=== PATIENT | female | born 1965 | race African-American/Black ===

== ENCOUNTER 2016-12-01 10:03 | Emergency (ER) | payer OTHER ==
[~2016-12-01] VITALS: Ht 167.6 cm; Wt 138.3 kg
[~2016-12-01 10:03] MED LIST: ACETAMINOPHEN/O1 TA2 PO; AVELOX400 MG PO; BENTYL20 M1 PO; BENTYL20 MG PO; ENDOCET 10-3251 EACH PO; ENDOCET 325 MG-1 TA1 PO; GLUCOPHAGE1000 M1 PO; IMODIUM 2 MG. CA2 MG PO; KEFLEX500 MG PO; LEVAQUIN500 MG PO; LIDODERM1 EACH TOP; LISINOPRIL20 M1 PO; LYRICA75 MG PO; MAALOX PO; MONTELUKAST SOD10 M1 PO; NOVOLOG MI100 UNIT/2 SC; NYSTATIN100000 U/2 TOP; ONDANSETRON HYDR4 MG PO; OXYCODONE5 M1 PO; PERCOCET 325 MG1 TA2 PO; PERCOCET 325 MG1 TAB PO; PERCOCET 5-3251 EACH PO; PROAIR HFA8.5 GM INH; PROTONIX40 M3 PO; SYMBICORT 16010.2 GM INH; TRAMADOL50 MG PO; VOLTAREN GEL1% TOP; VOLTAREN50 MG TOP; ZOFRAN ODT4 MG PO
--- NOTE | 2016-12-01 11:16 | ED GENERAL ADULT ---
History of Present Illness General Chief Complaint: Upper Respiratory Sx/Fever Stated Complaint: RIGHT EAR PAIN, NASAL CONGESTION,COUGH Source: patient Exam Limitations: no limitations Vital Signs & Intake/Output Vital Signs & Intake/Output Vital Signs Date Time Temp Pulse Resp B/P Pulse O2 O2 Flow FiO2 Ox Delivery Rate 12/01 1221 97.6 72 22 122/87 99 Nasal 2.0L Cannula 12/01 1147 Nasal 2.0L Cannula 12/01 1124 98 Nasal 2.0L Cannula 12/01 1008 98.4 73 20 141/78 99 Nasal 2.0L Cannula Allergies Coded Allergies: Penicillins (HIVES 11/06/15) ibuprofen (Intermediate, UPSET STOMACH 11/06/15) Uncoded Allergies: SEASONING SALT (Intermediate, HIVES 07/31/14) Reconcile Medications Albuterol Sulfate (Proair Hfa) 90 MCG HFA.AER.AD 2 PUF INH Q4-6 PRN PRN COPD (Reported) Budesonide/Formoterol Fumarate (Symbicort 160-4.5 Mcg Inhaler) 160 MCG-4.5 MCG/ ACTUATION HFA.AER.AD 2 PUF INH BID BREATHING PROBLEMS (Reported) Codeine Phosphate/Guaifenesi (Cheratussin AC Syrup) 10 MG-100 MG/5 ML LIQUID 5 ML PO Q8HR PRN COUGH Dicyclomine HCl 20 MG TABLET 1 TAB PO TID GI (Reported) Doxycycline Hyclate 100 MG CAPSULE 1 CAP PO BID SINUSITIS Insulin Aspart Protam & Aspart (Novolog Mix 70-30 Flexpen Syrn) 100 UNIT/ML (70- 30) INSULN.PEN 14 U SC BID DIABETES (Reported) Lidocaine (Lidoderm) 5 % ADH..PATCH 1 PAT TOP DAILY KNEE,SHOULDER (Reported) may wear up to 12 hours Lisinopril 20 MG TABLET 1 TAB PO DAILY HTN (Reported) Metformin HCl (Glucophage) 1,000 MG TABLET 1 TAB PO BID DIABETES (Reported) Montelukast Sodium 10 MG TABLET 1 TAB PO QPM COPD (Reported) Oxycodone HCl/Acetaminophen (Endocet 10-325 MG Tablet) 1 EACH TABLET 1 TAB PO TID PAIN (Reported) Pantoprazole Sodium (Protonix) 40 MG TABLET.DR 1 TAB PO DAILY GI (Reported) Pregabalin (Lyrica) 75 MG CAPSULE 1 CAP PO DAILY NEUROPATHY (Reported) Triage Note: PT TO ED C/O RIGHT EAR PAIN X 2 DAYS. ALSO C/O URI S/S. DENIES FEVERS AT HOME. AFEBRILE NOW. C/O PRODUCTIVE COUGH WITH GREEN SPUTUM. Triage Nurses Notes Reviewed? yes Onset: Gradual Duration: day(s): (2) Timing: remote history Injury Environment: home Severity: moderate Severity Numbers: 8 No Modifying Factors: none Associated Symptoms: cough HPI: Patient is a 50-year-old female with history of COPD on 2 L nasal cannula all the time presenting to the emergency department chief complaining of upper respiratory congestion, right ear pain, productive cough of green sputum nothing going on for the past 2 days. Positive malaise. Denies fevers or chills. No recent travel or sick contacts. She's been taking an old prescription cough medication that has not been working. Denies any chest pain palpitations. She reports shortness of breath only with coughing. Has not had to increase her oxygen is. Denies abdominal pain. No nausea or vomiting. She also reports a scratchy throat and body aches. (MERRICK GLEASON) Past History Travel History Traveled to [place] past 21 day No Medical History Any Pertinent Medical History? see below for history Neurological: NONE EENT: NONE Cardiovascular: hypertension Respiratory: asthma, bronchitis, COPD, obstructive sleep apnea, O2 DEP @ 2L USES CPAP Gastrointestinal: NONE Hepatic: NONE Renal: NONE Musculoskeletal: NONE Psychiatric: NONE Endocrine: diabetes Blood Disorders: anemia Cancer(s): NONE FELT HANGER/Reproductive: NONE History of MRSA: No History of VRE: No History of CDIFF: No Tetanus Vaccine: 05/08/13 Surgical History Surgical History: N Psychosocial History Who do you live with Significant Other Services at Home None What is your primary language Kyrgyz Tobacco Use: Quit >30 days ago ETOH Use: denies use Illicit Drug Use: denies illicit drug use Family History Hx Contributory? No (MERRICK GLEASON) Review of Systems Review of Systems Constitutional: Reports: malaise. Comments Review of systems: See HPI, All other systems negative. Constitutional, no chills fever or weight loss HEENT: No visual changes Cardiovascular: No chest pain ,palpitation , orthopnea or ankle swelling Skin, no jaundice no rashes Respiratory: No hemoptysis GI: No nausea no vomiting : No dysuria No hematuria Muscle skeletal: no back pain, no neck pain, Neurologic: No numbness no confusion, no headache Psych: No stress anxiety or depression,. Heme/endocrine: No bruising no bleeding no polyuria or polydipsia Immunology: No splenectomy or history of AIDS (CHESTER LINDA,MERRICK) Physical Exam Physical Exam General Appearance: well developed/nourished, no apparent distress, alert, awake , comfortable Comments: Well-developed well-nourished person in no acute distress HEENT: Normal EENT exam, extraocular motion intact, no nystagmus. Pupils equally round and reactive to light and accommodation. Nose is atraumatic. External auditory canal and Tympanic membranes clear. Pharynx normal is mildly erythematous, no exudate, clearing secretions without difficulty. No swelling or edema. Mild tenderness to palpation over the maxillary sinuses bilaterally. Nasal cannula in place. Clear rhinorrhea appreciated bilaterally. Neck: Supple, mild anterior cervical lymphadenopathy appreciated that is nontender, mobile, normal range of motion without pain or tenderness Back: Nontender, Cardiovascular: Regular rate and rhythms no murmurs rubs or gallops, normal JVP Respiratory: Chest nontender. No respiratory distress.diffuse expiratory wheezing to auscultation bilaterally Extremity: No edema, no calf tenderness to palpation, normal and equal pulses. Neuro: Alert oriented x3 Skin: No appreciable rash on exposed skin, skin is warm and dry. Psych: Mood and affect is normal, memory and judgment is normal. Core Measures ACS in differential dx? No CVA/TIA Diagnosis: No Severe Sepsis Present: No Septic Shock Present: No (CHESTER LINDA,MERRICK) Progress Differential Diagnoses I considered the following diagnoses in my evaluation of the patient: Influenza , upper respiratory infection, asthma exacerbation, COPD exacerbation, pneumonia , bronchitis, sinusitis, syndrome Plan of Care: Orders Procedure Date/time Status RAPID VIRAL INFLUENZA A 12/01 110 Complete Microbiology 12/01 1140 NASOPHARYN: Influenza Virus A & B Rapid Smear - COMP Diagnostic Imaging: Viewed by Me: Radiology Read. Discussed w/RAD: Radiology Read. Radiology Impression: PATIENT: YA ANGEL PRESENT AGE: 50 PATIENT ACCOUNT NO: [id number] : 67 LOCATION: [facility] ORDERING PHYSICIAN: MERRICK LINDA SERVICE DATE: 12/01/16-1106 EXAM TYPE: RAD - XRY-PORTABLE CHEST XRAY EXAMINATION: XR PORTABLE CHEST CLINICAL INFORMATION: Cough COMPARISON: 06/10/2016 TECHNIQUE: Portable AP view of the chest was obtained. FINDINGS: The lungs are well expanded. Overall evaluation is somewhat limited due to body habitus and overlying soft tissue prominence. No dense consolidation, edema, or effusion. No pneumothorax. The cardiomediastinal silhouette is unchanged. No acute osseous abnormality. IMPRESSION: Somewhat limited examination with no focal abnormality identified. Initial ED EKG: none Comments: 12/01/2016 11:35:38 AM patient medicated with DuoNeb treatment for wheezing. She 'll go fracture to rule out pneumonia although unlikely. Patient is afebrile no acute distress. Vitals are stable. We will also assess for influenza. Patient requesting pain medication at this time. She also reports that she would like a refill on her HYCODON cough medication prescription. 12/01/2016 12:13:18 PM and reevaluation patient feeling improved after breathing treatment pain medication. She'll be sent home with cough medication and antibiotics. Chose doxycycline secondary to interactions with other meds. This will treat sinusitis in bronchitis. She'll follow-up with her PCP. (MERRICK GLEASON) Departure Departure Disposition: HOME OR SELF CARE Condition: Stable Clinical Impression Primary Impression: Bronchitis Secondary Impressions: Sinusitis Qualifiers: Sinusitis location: maxillary Chronicity: acute Recurrence: not specified as recurrent Qualified Code: J01.00 - Acute maxillary sinusitis, unspecified Referrals: KADEN KHAN,RHONDA Crystal (PCP/Family) Additional Instructions: Follow-up with your primary care physician call to make an appointment.. Increase fluids. Take antibiotics and cough medication as prescribed. Use at- home inhalers as directed. Return for worsening symptoms or concerns. Departure Forms: Customer Survey General Discharge Information Prescriptions: Current Visit Scripts Codeine Phosphate/Guaifenesi (Cheratussin AC Syrup) 5 ML PO Q8HR PRN COUGH #125 ML Doxycycline Hyclate 1 CAP PO BID #20 CAP (MERRICK GLEASON) PA/EMAIL PRODUCTION CONSULTANT Co-Sign Statement Statement: ED Attending supervision documentation- [] I saw and evaluated the patient. I have also reviewed all the pertinent lab results and diagnostic results. I agree with the findings and the plan of care as documented in the PA's/EMAIL PRODUCTION CONSULTANT's documentation. [x] I have reviewed the ED Record and agree with the PA's/EMAIL PRODUCTION CONSULTANT's documentation. [] Additions or exceptions (if any) to the PAs/EMAIL PRODUCTION CONSULTANT's note and plan are summarized below: [] (STEPHANIE LYNN,ELLA Chen) Critical Care Note Critical Care Note Critical Care Time: non-applicable (CHESTER LINDA,MERRICK)
--- NOTE | 2016-12-01 11:35 | RADIOLOGY REPORT ---
EXAMINATION: XR PORTABLE CHEST CLINICAL INFORMATION: Cough COMPARISON: 06/10/2016 TECHNIQUE: Portable AP view of the chest was obtained. FINDINGS: The lungs are well expanded. Overall evaluation is somewhat limited due to body habitus and overlying soft tissue prominence. No dense consolidation, edema, or effusion. No pneumothorax. The cardiomediastinal silhouette is unchanged. No acute osseous abnormality. IMPRESSION: Somewhat limited examination with no focal abnormality identified.
[2016-12-01] MEDS ORDERED: DOXYCYCLINE HY100 M2 PO (11:40)
[2016-12-01] MEDS ORDERED: CHERATUSSIN AC118 M1 PO (11:40)
[2016-12-01] MEDS ORDERED: DICYCLOMINE HCL20 M1 PO (11:44)
[2016-12-01] MEDS ORDERED: LYRICA75 M1 PO (11:46)
[2016-12-01 12:21] VITALS: BP 122/87
== END 2016-12-01 12:21 ==
LOC: ERH 10:03
DX: J40 Bronchitis, not specified as acute or chronic (principal); J32.9 Chronic sinusitis, unspecified; Z87.891 Personal history of nicotine dependence
CPT/HCPCS: 1263; 87804; 87804-59

== ENCOUNTER 2017-01-15 13:06 | Emergency (ER) | payer OTHER ==
[~2017-01-15] VITALS: Ht 157.5 cm; Wt 139.3 kg
[~2017-01-15 13:06] MED LIST changes: +CHERATUSSIN AC118 M1 PO; +DICYCLOMINE HCL20 M1 PO; +DOXYCYCLINE HY100 M2 PO; +LYRICA75 M1 PO
--- NOTE | 2017-01-15 14:13 | ED NECK/BACK PAIN COMPLAINT ---
History of Present Illness General Chief Complaint: Low Back Pain/Injury Stated Complaint: INJURY TO BACK AND NECK YESTERDAY Source: patient, family Exam Limitations: no limitations Vital Signs & Intake/Output Vital Signs & Intake/Output Vital Signs Date Time Temp Pulse Resp B/P B/P Pulse O2 O2 Flow FiO2 Mean Ox Delivery Rate 01/15 1512 97.3 73 18 138/65 100 Room Air 01/15 1311 98.9 85 20 145/83 96 Room Air ED Intake and Output 01/16 0000 01/15 1200 Intake Total 120 Output Total Balance 120 Intake, Oral 120 Patient 307 lb Weight Weight Reported by Patient Measurement Method Allergies Coded Allergies: Penicillins (HIVES 11/06/15) ibuprofen (Intermediate, UPSET STOMACH 11/06/15) Uncoded Allergies: SEASONING SALT (Intermediate, HIVES 07/31/14) Reconcile Medications Albuterol Sulfate (Proair Hfa) 90 MCG HFA.AER.AD 2 PUF INH Q4-6 PRN PRN COPD (Reported) Budesonide/Formoterol Fumarate (Symbicort 160-4.5 Mcg Inhaler) 160 MCG-4.5 MCG/ ACTUATION HFA.AER.AD 2 PUF INH BID BREATHING PROBLEMS (Reported) Codeine Phosphate/Guaifenesi (Cheratussin AC Syrup) 10 MG-100 MG/5 ML LIQUID 5 ML PO Q8HR PRN COUGH Dicyclomine HCl 20 MG TABLET 1 TAB PO TID GI (Reported) Doxycycline Hyclate 100 MG CAPSULE 1 CAP PO BID SINUSITIS Insulin Aspart Protam & Aspart (Novolog Mix 70-30 Flexpen Syrn) 100 UNIT/ML (70- 30) INSULN.PEN 14 U SC BID DIABETES (Reported) Lidocaine (Lidoderm) 5 % ADH..PATCH 1 PAT TOP DAILY KNEE,SHOULDER (Reported) may wear up to 12 hours Lisinopril 20 MG TABLET 1 TAB PO DAILY HTN (Reported) Metformin HCl (Glucophage) 1,000 MG TABLET 1 TAB PO BID DIABETES (Reported) Montelukast Sodium 10 MG TABLET 1 TAB PO QPM COPD (Reported) Oxycodone HCl/Acetaminophen (Endocet 10-325 MG Tablet) 1 EACH TABLET 1 TAB PO TID PAIN (Reported) Oxycodone HCl/Acetaminophen (Percocet 5-325 MG Tablet) 5 MG-325 MG TABLET 1 TAB PO BID Back pain Pantoprazole Sodium (Protonix) 40 MG TABLET. 1 TAB PO DAILY GI (Reported) Pregabalin (Lyrica) 75 MG CAPSULE 1 CAP PO DAILY NEUROPATHY (Reported) Triage Note: PT TO ED C/O NECK AND BACK PAIN. STATES ON THE [employer] YESTERDAY THE WHEELCHAIR RAMP BROKE CAUSING PT TO FALL. Triage Nurses Notes Reviewed? yes HPI: 51 yo F PMH HTN, Astma, Chronic Knee pain presenting with back pain status post injury. Patient was exiting [place] yesterday, had wheeled her wheelchair onto motorized ramp, catching system nonmotorized ramp malfunctioned and ramp fell from elevated rapidly down onto pavement of street. Patient states that she had significant compressive force her buttocks and upper back with impact on the pavement, but did not fall out of her wheelchair, denies head/neck trauma, LOC, focal neurologic symptoms. Some back pain yesterday, worse today prompting presentation to the emergency department (LISSET BURNETT MD) Past History Travel History Traveled [facility] past 21 day No Medical History Any Pertinent Medical History? none Neurological: NONE EENT: NONE Cardiovascular: hypertension Respiratory: asthma, bronchitis, COPD, obstructive sleep apnea, O2 DEP @ 2L USES CPAP Gastrointestinal: NONE Hepatic: NONE Renal: NONE Musculoskeletal: NONE Psychiatric: NONE Endocrine: diabetes Blood Disorders: anemia Cancer(s): NONE MANAGER DISH/Reproductive: NONE History of MRSA: No History of VRE: No History of CDIFF: No Tetanus Vaccine: 05/08/13 Surgical History Surgical History: N Psychosocial History Who do you live with Significant Other Services at Home None What is your primary language Surinamese Tobacco Use: Quit >30 days ago ETOH Use: denies use Illicit Drug Use: denies illicit drug use Family History Hx Contributory? No (LISSET BURNETT MD) Review of Systems Review of Systems Constitutional: Reports: no symptoms. Eyes: Reports: no symptoms. Ears, Nose, Throat, Mouth: Reports: no symptoms. Respiratory: Reports: no symptoms. Cardiovascular: Reports: no symptoms. Gastrointestinal/Abdominal: Reports: no symptoms. Musculoskeletal: Reports: no symptoms. Skin: Reports: no symptoms. Neurological/Psychological: Reports: no symptoms. (LISSET BURNETT MD) Physical Exam Physical Exam General Appearance: well developed/nourished, no apparent distress, alert, awake Head: atraumatic Eyes: Bilateral: normal appearance. Neck: normal inspection, no midline tenderness Respiratory: normal breath sounds, no respiratory distress Cardiovascular: regular rate/rhythm, normal peripheral pulses, bradycardia Gastrointestinal: normal bowel sounds, soft, non-tender Comments: HEENT: Atraumatic Cervical spine: Moderate tenderness to palpation of bilateral lateral paracervical muscles without bony midline tenderness palpation, step-offs, deformities Thoracic and lumbar spine: Moderate tenderness palpation over entirety of midline thoracic and lumbar spine without step-offs or deformities, no crepitus, no instability, no point tenderness to palpation Neuro: Strength and sensation intact in bilateral upper and lower extremities (LISSET BURNETT MD) Progress Differential Diagnosis: thoracic outlet syn, T/L spine injury Plan of Care: Current Medications Sig/Clotilde Start time Last Medication Dose Stop Time Status Admin Oxycodone HCl 0 .STK-MED ONE 01/15 1441 CAN (Roxicodone) Oxycodone HCl 5 MG ONCE ONE 01/15 1415 CAN (Roxicodone) 01/15 1416 Physician MDM: 51 yo F M presenting with back pain s/p fall on ramp in wheelchair. VSS, trauma exam as above. DDx: Muscle strain, low concern for C- spine, T-spine, or L-spine fracture. Patient medicated with Percocet with marked improvement in pain. X-ray of thoracic and lumbar spine without evidence of compression fractures, patient reassured by imaging. Patient notes that she has run out of her Percocet, has pain contract, we'll provide with prescription for 4 Percocet given acute injury, instructed to follow up with pain management for further evaluation and narcotic Rx. Discharged with return to care precautions. (LISSET BURNETT MD) Departure Departure Disposition: HOME OR SELF CARE Condition: Stable Clinical Impression Primary Impression: Back pain Referrals: KADEN KHAN,RHONDA Crystal (PCP/Family) Additional Instructions: Take Tylenol or ibuprofen as needed for back pain. Follow-up with her automotive paint technician in the next 2-3 days Return to the Emergency department for any new, worsening, or concerning symptoms. Departure Forms: Customer Survey General Discharge Information Prescriptions: Current Visit Scripts Oxycodone HCl/Acetaminophen (Percocet 5-325 MG Tablet) 1 TAB PO BID #3 TAB (LISSET BURNETT MD) Resident Co-Sign Statement Statement: ED Attending supervision documentation- [X] I saw and evaluated the patient. I have also reviewed all the pertinent lab results and diagnostic results. I agree with the findings and the plan of care as documented in the Resident's documentation. [X] I have reviewed the ED Record and agree with the Resident's documentation. [] Additions or exceptions (if any) to the Resident's note and plan are summarized below: [] (EDIL KHAN,LOI Crystal)
--- NOTE | 2017-01-15 14:55 | RADIOLOGY REPORT ---
EXAMINATION: XR THORACOLUMBAR SPINE CLINICAL INFORMATION: Back pain. Fall. COMPARISON: Chest x-ray 06/10/2016. CT abdomen pelvis 12/16/2015. CTA of chest 09/08/2015 TECHNIQUE: 2 views of the thoracolumbar spine were obtained. FINDINGS: Vertebrae have normal height and alignment. No fracture. No subluxation. Mild degenerative lipping of the endplates of the mid thoracic vertebrae with mild disc height narrowing, degenerative disc disease. There is also mild degenerative lipping at the anterior endplates of the lower lumbar vertebrae. There is mild degenerative facet joint arthrosis at the lower lumbar spine. No spondylolysis or spondylolisthesis IMPRESSION: No acute abnormality of the thoracic or lumbar spine. Mild multilevel degenerative spondylosis of the spine.
[2017-01-15 15:12] VITALS: BP 138/65
[2017-01-15] MEDS ORDERED: PERCOCET 5-3251 EACH PO (15:54)
== END 2017-01-15 16:04 ==
LOC: ERH 13:06
DX: M54.9 Dorsalgia, unspecified (principal)
CPT/HCPCS: 72080

== ENCOUNTER 2018-04-28 10:22 | Emergency (ER) | payer OTHER ==
[~2018-04-28] VITALS: Ht 167.6 cm; Wt 131.1 kg
--- NOTE | 2018-04-28 11:25 | ED HAND/WRIST INJURY COMPLAINT ---
History of Present Illness General Chief Complaint: General Adult Stated Complaint: ?INFECTED HAND Source: patient Exam Limitations: no limitations Vital Signs & Intake/Output Vital Signs & Intake/Output Vital Signs Date Time Temp Pulse Resp B/P B/P Pulse O2 O2 Flow FiO2 Mean Ox Delivery Rate 04/28 1125 Room Air 04/28 1026 96.8 74 18 98 Room Air Room Air Allergies Coded Allergies: Penicillins (HIVES 11/06/15) ibuprofen (Intermediate, UPSET STOMACH 11/06/15) Uncoded Allergies: SEASONING SALT (Intermediate, HIVES 07/31/14) Reconcile Medications Albuterol Sulfate (Proair Hfa) 90 MCG HFA.AER.AD 2 PUF INH Q4-6 PRN PRN COPD (Reported) Budesonide/Formoterol Fumarate (Symbicort 160-4.5 Mcg Inhaler) 160 MCG-4.5 MCG/ ACTUATION HFA.AER.AD 2 PUF INH BID BREATHING PROBLEMS (Reported) Cephalexin (Keflex) 500 MG CAPSULE 1 CAP PO TID CELLULITIS Codeine Phosphate/Guaifenesi (Cheratussin AC Syrup) 10 MG-100 MG/5 ML LIQUID 5 ML PO Q8HR PRN COUGH Dicyclomine HCl 20 MG TABLET 1 TAB PO TID GI (Reported) Doxycycline Hyclate 100 MG CAPSULE 1 CAP PO BID SINUSITIS Insulin Aspart Protam & Aspart (Novolog Mix 70-30 Flexpen Syrn) 100 UNIT/ML (70- 30) INSULN.PEN 14 U SC BID DIABETES (Reported) Lidocaine (Lidoderm) 5 % ADH..PATCH 1 PAT TOP DAILY KNEE,SHOULDER (Reported) may wear up to 12 hours Lisinopril 20 MG TABLET 1 TAB PO DAILY HTN (Reported) Metformin HCl (Glucophage) 1,000 MG TABLET 1 TAB PO BID DIABETES (Reported) Montelukast Sodium 10 MG TABLET 1 TAB PO QPM COPD (Reported) Oxycodone HCl/Acetaminophen (Endocet 10-325 MG Tablet) 1 EACH TABLET 1 TAB PO TID PAIN (Reported) Oxycodone HCl/Acetaminophen (Percocet 5-325 MG Tablet) 5 MG-325 MG TABLET 1 TAB PO BID Back pain Pantoprazole Sodium (Protonix) 40 MG TABLET.DR 1 TAB PO DAILY GI (Reported) Pregabalin (Lyrica) 75 MG CAPSULE 1 CAP PO DAILY NEUROPATHY (Reported) Triage Note: PT TO ED WITH C/O ? RIGHT 3RD FINGER INFECTION, PT USES WART REMOVER ON THE AREA "I THINK MAYBE IT'S INFECTED NOW, I JUST WANT TO CHECK IT OUT". NO REDNESS, SWELLING OR DRAINAGE NOTED TO THE AREA. Triage Nurses Notes Reviewed? yes Duration: day(s): Timing: recent history Injury Environment: home Severity: moderate Pain/Injury Location: Right: Hand. HPI: 52yo female with hx of DM, HTN presents to ED complaining of "infection" to right hand x 4 days. Patient states she had a wart on her right third finger which she has been applying a [id number] wart remover to. Patient states over the past 4 days she has had swelling, redness, pain to right hand involving all fingers. She believes the areas infected. She denies fevers, chills, injury. (Gerri Garcia) Past History Travel History Traveled to [place] past 21 day No Medical History Any Pertinent Medical History? see below for history Neurological: NONE EENT: NONE Cardiovascular: hypertension Respiratory: asthma, bronchitis, COPD, obstructive sleep apnea, O2 DEP @ 2L USES CPAP Gastrointestinal: NONE Hepatic: NONE Renal: NONE Musculoskeletal: NONE Psychiatric: NONE Endocrine: diabetes Blood Disorders: anemia Cancer(s): NONE ELECTRICIAN MANAGER/Reproductive: NONE History of MRSA: No History of VRE: No History of CDIFF: No Tetanus Vaccine: 03/15/17 Surgical History Surgical History: N Psychosocial History Who do you live with Significant Other Services at Home None What is your primary language Jordanian Tobacco Use: Quit >30 days ago ETOH Use: denies use Illicit Drug Use: denies illicit drug use Family History Hx Contributory? No (Gerri Garcia) Review of Systems Review of Systems Constitutional: Reports: no symptoms. EENTM: Reports: no symptoms. Respiratory: Reports: no symptoms. Cardiovascular: Reports: no symptoms. GI: Reports: no symptoms. Genitourinary: Reports: no symptoms. Musculoskeletal: Reports: see HPI. Skin: Reports: see HPI. Neurological/Psychological: Reports: no symptoms. Hematologic/Endocrine: Reports: no symptoms. Immunologic/Allergic: Reports: no symptoms. All Other Systems: Reviewed and Negative (Gerri Garcia) Physical Exam Physical Exam General Appearance: well developed/nourished, no apparent distress, alert, awake Head: atraumatic, normal appearance Eyes: Bilateral: normal appearance. Ears, Nose, Throat: hearing grossly normal Neck: normal inspection, supple, full range of motion Cardiovascular/Respiratory: normal peripheral pulses, no respiratory distress Back: normal inspection, normal range of motion Wrist Left: normal range of motion, normal inspection Wrist Right: normal range of motion, normal inspection Hand Left: normal inspection, normal range of motion Hand Right: mild swelling and tenderness to hand and digits, 2mm crusted lesion to palmar third digit, ROM intact Neurologic/Tendon: normal sensation, normal motor functions, normal tendon functions Skin: intact, normal color, warm/dry (Gerri Garcia) Progress Differential Diagnosis: abscess, cellulitis, contusion, sprain, wart Plan of Care: Patient has mild swelling to right hand and all digits. The entire hand is palpation. Her range of motion is intact. Given these findings we will initiate antibiotics and have her return in 2 days for reevaluation. The swelling at this time is mild. Patient has stable vital signs. Patient agrees with plan of care. Discussed findings with Dr. Ponce who agrees with this plan. (Gerri Garcia) Departure Departure Disposition: HOME OR SELF CARE Condition: Stable Clinical Impression Primary Impression: Hand swelling Secondary Impressions: Hand pain Referrals: Bay KHAN,Js Crystal (PCP/Family) Additional Instructions: Take keflex as prescribed. Follow-up primary care doctor. Return if her symptoms are worsening or IF YOU have Other concerns. Please note that there might be incidental findings in your evaluation that are unrelated to the current emergency department visit. Please notify your primary care doctor about this emergency department visit in order to obtain and review all of the testing performed so that these incidental findings can be monitored as needed. If you had an x-ray performed, please understand that some fractures may not be seen on the initial set of x-rays. If your symptoms persist you might need a repeat set of x-rays to check for such a fracture. If you had a laceration evaluated, please understand that foreign bodies such as glass or wood may not be visible to the naked eye or on plain x-rays. If the wound becomes red, swollen, increasingly more painful or if there is any drainage from the wound, please have it reevaluated by a physician for the possibility of a retained foreign body. If you're unable to follow up as outlined in the discharge instructions please return to the emergency department. Thank you for choosing the [facility] Emergency Department for your care. It was a pleasure to serve you today. Departure Forms: Customer Survey General Discharge Information Prescriptions: Current Visit Scripts Cephalexin (Keflex) 1 CAP PO TID #30 CAP (Alexandra LINDA,Gerri Gusman) PA/SOLE STAINER Co-Sign Statement Statement: ED Attending supervision documentation- [] I saw and evaluated the patient. I have also reviewed all the pertinent lab results and diagnostic results. I agree with the findings and the plan of care as documented in the PA's/SOLE STAINER's documentation. [X] I have reviewed the ED Record and agree with the PA's/SOLE STAINER's documentation. [] Additions or exceptions (if any) to the PAs/SOLE STAINER's note and plan are summarized below: [] (Rosario KHAN,Will Crystal)
[2018-04-28] MEDS ORDERED: KEFLEX500 M1 PO (11:33)
== END 2018-04-28 11:36 ==
LOC: ERH 10:22
DX: M79.89 Other specified soft tissue disorders (principal); M79.641 Pain in right hand; I10 Essential (primary) hypertension; E11.9 Type 2 diabetes mellitus without complications; D64.9 Anemia, unspecified; Z79.4 Long term (current) use of insulin; Z87.891 Personal history of nicotine dependence